=== PATIENT | female | born 1945 | race African-American/Black ===

== ENCOUNTER 2016-12-25 14:11 | Emergency (ER) | payer MEDICARE ==
[~2016-12-25] VITALS: Ht 157.5 cm; Wt 103.9 kg
[~2016-12-25 14:11] MED LIST: ALEVE220 M2 PO; BACTROBAN 2% OI15 GM TOPIC; CIPROFLOXACIN750 MG ORAL; DIABETA2.5 MG ORAL; DIPHENHYDRAMINE25 M1 ORAL; GABAPENTIN300 MG ORAL; LANTUS5 UNITS SUBQ; MELOXICAM7.5 MG ORAL; NOVOLIN R100 UNIT/1 SUBQ; TOUJEO SOL300 UNIT/1 SQ; TRAMADOL HCL50 MG ORAL
[2016-12-25] MEDS ORDERED: Morphine Sulfate 4mg/ml Inj IM ONE (14:45)
--- NOTE | 2016-12-25 14:48 | Emergency Room Report ---
History of Present Illness General Chief Complaint: Female Urogenital Problems Source: Patient Present Illness HPI The patient presents with dysuria that began December 20. She states the pain is 9/10 burning, not radiating, constant. Makes it difficult to walk. She denies any fevers and chills. Her blood sugars have been well controlled recently. She's had bladder infections in the past. She has no medicine for pain at home at this time. No chest pain, cough, NVD. Chronic back pain not changed. No rashes. No headache. Walks with walker. 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 Nursing Documentation: PMH: Agreed, PSxH: Agreed Nursing Documentation-PMH Hx Cardiac Problems: No Hx Hypertension: No Hx Pacemaker: No Hx Asthma: No Hx COPD: 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 Hx Diabetes: Yes Hx Cancer: Yes Hx Gastrointestinal Problems: Yes Hx Neurological Problems: Yes - HX FIBROMYALGIA Review of Systems All Other Systems: negative except mentioned in HPI Physical Exam Vital Signs Date Time Temp Pulse Resp B/P (MAP) Pulse Ox O2 Delivery O2 Flow Rate FiO2 12/25/16 14:22 98.8 83 15 144/80 97 Room Air Sp02 EP Interpretation: reviewed, normal General Appearance: well appearing, no apparent distress, GCS 15 Head: normocephalic, atraumatic Eyes: bilateral eye normal inspection, bilateral eye PERRL ENT: hearing grossly normal, normal voice, moist mucus membranes Neck: full range of motion, supple Respiratory: lungs clear, no respiratory distress, speaking full sentences Cardiovascular #1: regular rate, rhythm Gastrointestinal: normal bowel sounds, non tender, tenderness - suprapubic, overweight Genitourinary: no CVA tenderness Musculoskeletal: gait/station normal - with walker, normal range of motion, no calf tenderness Neurologic: alert, motor strength/tone normal, grossly normal Psychiatric: mood/affect normal Skin: no rash Medical Decision Making Diagnostic Impression: Primary Impression: UTI (urinary tract infection) Qualified Codes: N30.01 - Acute cystitis with hematuria Additional Impression: Diabetes Qualified Codes: E11.8 - Type 2 diabetes mellitus with unspecified complications ER Course The patient presents with dysuria and lower, pain. Chest is hematuria. She denies any fevers. We did check an Accu-Chek and her urine. The patient's Accu-Chek is 100. She'll be treated for pain and were checking her urinalysis. The patient has evidence of a urinary tract infection. Her blood sugar is 100 here in an acceptable. She's improved with the pain shot. Patient is stable for outpatient observation and treatment. Laboratory Tests Test 12/25/16 14:45 Urine Color Yellow Urine Appearance Cloudy Urine pH 6 (4.5-8.0) Urine Specific Rhodes 1.015 (1.005-1.035) Urine Protein 3+ (NEGATIVE) H Urine Glucose (UA) Negative (NEGATIVE) Urine Ketones Negative (NEGATIVE) Urine Occult Blood 5+ (NEGATIVE) H Urine Nitrite Negative (NEGATIVE) Urine Bilirubin Negative (NEGATIVE) Urine Urobilinogen 4 MG/DL (0.0-1.0) H Urine Leukocyte Esterase 3+ (NEGATIVE) H Urine RBC Tntc /HPF (0 - 2) H Urine WBC 60-80 /HPF (0 - 2) H Urine Squamous Epithelial Cells Few /LPF (NONE/OCC) Urine Bacteria Few /HPF (NONE) Last Vital Signs Date Time Temp Pulse Resp B/P (MAP) Pulse Ox O2 Delivery O2 Flow Rate FiO2 12/25/16 15:40 77 16 147/79 98 Room Air 12/25/16 14:22 98.8 Status: improved Disposition: HOME, SELF-CARE Condition: Improved Scripts Tramadol Hcl* (ULTRAM*) 50 Mg Tablet 50 MG ORAL Q6H Y for For Pain, #12 TAB 0 Refills Prov: Kaiden Souza M.D. 12/25/16 Phenazopyridine Hcl* (PYRIDIUM*) 100 Mg Tablet 100 MG ORAL THREE TIMES A DAY, #9 TAB Prov: Kaiden Souza M.D. 12/25/16 Nitrofurantoin Monohyd/M-Cryst* (MACROBID 100 MG*) 100 Mg Capsule 100 MG ORAL EVERY 12 HOURS, #14 CAP Prov: Kaiden Souza M.D. 12/25/16 Kaiden Souza M.D. Dec 25, 2016 14:48
[2016-12-25 14:52] LABS: APPEARANCE,URINE CLOUDY; KETONES,URINE NEGATIVE (NEGATIVE); LEUKOCYTE ESTERASE ,URINE 3+ (NEGATIVE); NITRITE,URINE NEGATIVE (NEGATIVE); PH,URINE 6 (4.5-8.0); PROTEIN,URINE 3+ (NEGATIVE); UROBILINOGEN,URINE 4 MG/DL (0.0-1.0)
[2016-12-25 14:58] LABS: BACTERIA,URINE FEW /HPF; RBC,URINE TNTC /HPF (0 - 2); SQUAMOUS EPITHELIAL CELL,UR FEW /LPF (NONE/OCC); WBC,URINE 60-80 /HPF (0 - 2)
[2016-12-25] MEDS ORDERED: PHENAZOPYRIDIN100 MG ORAL (15:21)
[2016-12-25] MEDS ORDERED: TRAMADOL HCL50 MG ORAL (15:21)
[2016-12-25] MEDS ORDERED: NITROFURANTOIN100 M2 ORAL (15:21)
[2016-12-25 15:40] VITALS: BP 147/79
== END 2016-12-25 15:41 | disposition home or self-care (01) ==
LOC: EMR 14:52
DX: N39.0 Urinary tract infection, site not specified (principal); E11.9 Type 2 diabetes mellitus without complications; Z88.0 Allergy status to penicillin; Z88.6 Allergy status to analgesic agent; Z91.018 Allergy to other foods
CPT/HCPCS: 81003; 87086; 96372; 99284; J2270; J2550

== ENCOUNTER → 2017-01-21 | Day surgery (SDC) | payer MEDICARE ==
--- NOTE | 2017-01-17 15:29 | Diagnostic Imaging Report ---
Indication: Shortness of breath Technique: Two views of the chest Comparison: 11/20/16 Findings: Again demonstrated is borderline cardiac regular. Lungs and pleural spaces are clear. There is a hiatal hernia. There is evidence of prior gastric surgery. Findings are unchanged Impression: No acute process. Findings as noted. Cardiomegaly
--- NOTE | 2017-01-20 14:09 | Opthalmology H&P ---
Ophthalmology H&P H&P Chief Complaint: decreased vision in left eye HPI Vision Affects Ability to: read, focus/use eyes together, manage personal affairs HPI Narrative blurry vision Exam Visual Acuity: OD: 20/40 OD: 20/160 Tension: OD: 18 OS: 17 Eye Exam: normal OU: external exam, palpebral fissure-width, marginal reflex distance, levator function, corneas, anterior chambers, fundus exam, findings: lens - OD: IOL OS: psc Assessment/Plan Diagnosis: (1) Cataract Treatment Plan: cataract extraction w/ lens implant Goals of Treatment: improvement of vision, enhance quality of life Attestation Attestation The risks and benefits of the surgery as well as alternative procedures were explained to the patient in detail. CAM WILL Jan 20, 2017 14:09
--- NOTE | 2017-01-20 14:10 | Pre-Procedure Note/Attestation ---
Pre-Procedure Note/Attestation Complete Prior to Procedure Planned Procedure: left Procedure Narrative: phaco with IOL, OS Indications for Procedure Pre-Operative Diagnosis: cataract, OS Attestation I attest that I discussed the nature of the procedure; its benefits; risks and complications; and alternatives (and the risks and benefits of such alternatives ), prior to the procedure, with the patient (or the patient's legal open claims representative). I attest that, if there was a reasonable possibility of needing a blood transfusion, the patient (or the patient's legal open claims representative) was given the [facility] standardized written summary, pursuant to the [place] Blood Safety Act ([place] Health and Safety Code # 1645, as amended). I attest that I re-evaluated the patient just prior to the surgery and that there has been no change in the patient's H&P, except as documented below: CAM WILL Jan 20, 2017 14:10
[2017-01-21] VITALS (9 sets, daily range): BP systolic 120–156; BP diastolic 56–86
[~2017-01-21] VITALS: Ht 157.5 cm; Wt 101.2 kg
[~2017-01-21] MED LIST changes: +Akten 3.5% 1ml Btl LEFT EYE ONE; +BSS 15ml BTL ONE; +BSS 500ml btl ONE; +Dexamethasone 4mg/ml vial ONE; +EPINEPHrine 1mg/1ml Amp ONE; +LR 1000ml ONE; +Lidocaine 1% MPF 10mg/ml 5ml ONE; +Maxitrol Opth Oint 3.5gm ONE; +Midazolam 2mg/2ml Inj ONE; +NITROFURANTOIN100 M2 ORAL; +NS Irrig 1000ml ONE; +PHENAZOPYRIDIN100 MG ORAL; +Povidone-Iodine 5% opth solution ONE; +Pred Forte 1% Opth Susp 1ml ONE; +Propofol 200mg/20ml IV ONE; +Sodium Hyaluronate 14 mg/ml 0.85ml ONE; +Sterile Water For Irrig 2000ml IRRIG ONE; +acetaZOLAMIDE 500mg Inj ONE; +fentaNYL 100 mcg/2 mL IV ONE
[2017-01-21] MEDS: Tobramycin Op Soln 0.3% LEFT EYE SCH ×3 (07:00→08:00)
[2017-01-21] MEDS: Phenylephrine 10% Opth Soln 5ml LEFT EYE SCH ×3 (07:42→08:00)
[2017-01-21] MEDS: Tropicamide 1% Opth Soln LEFT EYE SCH ×3 (07:42→07:59)
[2017-01-21] MEDS: Cyclopentolate 1% Opth Sol LEFT EYE SCH ×3 (07:42→07:59)
--- NOTE | 2017-01-21 09:02 | Pre-op HX & Phy Repo 2 SIG ---
DATE OF ADMISSION: 01/21/2017 PREOPERATIVE HISTORY AND PHYSICAL DATE OF PLANNED PROCEDURE: 01/21/2017 PLANNED PROCEDURE: Left eye cataract surgery. History Of Present Illness: The patient is a 71-year-old female, well known to me. She has a history of hypertension, diabetes, obesity, and hypothyroidism. She has a prior history of endometrial cancer and osteoarthritis, who presents for left eye cataract surgery. The patient has otherwise been doing well. She has a history of poorly-controlled diabetes and obesity. Sugars have been much improved. The patient denies any fevers or chills. She has had no chest pain or shortness of breath. Denies any orthopnea or PND. PAST MEDICAL HISTORY: As above. PAST SURGICAL HISTORY: Hysterectomy. CURRENT MEDICATIONS: Reconciled and reviewed. ALLERGIES: Amoxicillin, aspirin, and . FAMILY HISTORY: Noncontributory. SOCIAL HISTORY: Negative for tobacco, ethanol, or drugs. Review Of Systems: General: No fever or chills. HEENT: No headaches or visual changes. Cardiopulmonary: No chest pain or shortness of breath. Gastrointestinal: No nausea or vomiting. Genitourinary: No urgency or frequency. Musculoskeletal: No joint pain or swelling. Neurologic: No evidence of seizures. PHYSICAL EXAMINATION: Vital Signs: Temperature 98 degrees, blood pressure 111/66, pulse 96, and respirations 20. General: The patient is a well-developed female, in no apparent distress. She is overweight. Awake, alert, and oriented x4. NECK: Supple. There is no jugular vein distention. HEART: Regular rate and rhythm. LUNGS: Lungs are clear. ABDOMEN: Soft, nontender, and nondistended. EXTREMITIES: Without clubbing, cyanosis, or edema. Laboratory And Diagnostic Data: Labs show white count of 5, hemoglobin 12, hematocrit 35, and platelet count of 206,000. Sodium 138, potassium 4.2, chloride 102, bicarb 27, and glucose of 206. BUN 9. PT 14 with INR of 1.53 with a PTT of 32. LDL is 123. Chest x-ray was clear. EKG showed sinus rhythm with nonspecific ST-T wave changes. Assessment And Plan: This is a pleasant female with diabetes and hypertension referred for left eye cataract surgery. She is medically stable for the planned procedure. We will monitor for any bleeding as she does have a slightly elevated INR. The patient is instructed to continue her antihypertensive regimen and take half a dose of insulin the night prior to her surgery. Her perioperative risk is average for her age and sex. Mikhail Pulliam M.D. DR: LINO JOB#: [id number] CC:
--- NOTE | 2017-01-21 09:55 | Anethesia Preoperative Eval ---
Anesthesia Pre-op PMH/ROS General Date of Evaluation: Jan 21, 2017 Time of Evaluation: 09:22 ASA Score: ASA 3 Mallampati Score Class I : Soft palate, uvula, fauces, pillars visible Class II: Soft palate, uvula, fauces visible Class III: Soft palate, base of uvula visible Class IV: Only hard plate visible Mallampati Classification: Class II Surgeon: brady Diagnosis: cataract left eye Surgical Procedure: cataract extraction left eye iol Anesthesia History: none Family History: no anesthesia problems Allergies: Coded Allergies: Dairy (Verified Allergy, Intermediate, 12/12/15) STUFFY NOSE,VOMITS WHEN PT TAKES MILK WITH BREAD AND EGGS AMOXICILLIN (Verified Allergy, Mild, 08/07/09) ASPIRIN (Verified Allergy, Mild, 08/07/09) Uncoded Allergies: WOOL (Allergy, Intermediate, Rash, 04/18/14) CERTAIN FOOD (Allergy, Mild, 08/11/09) Medications: see eMAR Past Medical History Pulmonary: Reports: COPD Neurologic/Psychiatric: Reports: CVA Endocrine: Reports: DM Hematology/Immune: Reports: anemia Musculoskeletal/Integumentary: Reports: OA Other: obesity Anesthesia Pre-op Phys. Exam Physician Exam Last Vital Signs Date Time Temp Pulse Resp B/P (MAP) Pulse Ox O2 Delivery O2 Flow Rate FiO2 01/21/17 07:44 97.8 79 16 130/77 Room Air Constitutional: NAD Neurologic: CN 2-12 intact Cardiovascular: RRR Respiratory: CTA Gastrointestinal: S/NT/ND Airway Exam Mallampati Score: Class II MO: limited Neck: decreased rom to lateral rotation TMD: 2fb ROM: limited Teeth: missing Dentures: upper Anesthesia Pre-op A/P Risk Assessment & Plan Assessment: asa3 Plan: mac Status Change Before Surgery: No Pre-Antibiotics Drug: acetazolamide 500ml Given Within 1 Hr of Incision: Yes Time Given: 09:30 FARHAD PERALES Jan 21, 2017 09:55
--- NOTE | 2017-01-22 09:25 | Brief Operative Note ---
Immediate Post Operative Note Operative Note Chief Complaint: blurry vision Pre-op Diagnosis: cataract, OS Procedure: phaco with IOl, OS Post-op Diagnosis: Pseudophakia Post-op Diagnosis: same as pre-op Findings: consistent w/pre-op dx studies Surgeon: Cesia Anesthesiologist: Perry Whatley Anesthesia: MAC Specimen: none Complications: none Condition: stable Fluids: LR Estimated Blood Loss: none Drains: none Implant(s) used?: Yes CAM WILL Jan 22, 2017 09:25
--- NOTE | 2017-01-22 10:37 | Operative Note - PDOC ---
Operative Note Operative Note Date of Operation/Procedure: Jan 21, 2017 Chief Complaint: blurry vision Pre-op Diagnosis: cataract, OS Procedure: phaco with IOl, OS Post-op Diagnosis: Pseudophakia Post-op Diagnosis: same as pre-op Operative Findings: consistent w/pre-op dx studies Surgeon: Cesia Anesthesiologist: Perry Whatley Anesthesia: MAC Specimen: none Complications: none Condition: stable Fluids: LR Estimated Blood Loss: none Drains: none Implant(s) used?: Yes Indications for Procedure cataract Description of Procedure This patient has been complaining visually significant cataract in the affected eye with the best corrected visual acuity under moderate glare conditions worse. The patient complains of difficulties with glare in performing activities of daily living and wants to manage personal affairs with comfort and accuracy and see well enough to move with safety at home and outdoors. ~~~ The risks, benefits and alternatives of the procedure were discussed with the patient in the office prior to scheduling surgery. All questions from the patient were answered after the surgical procedure was explained in detail. The risks of the procedure as explained to the patient include, but are not limited to, pain, infection, bleeding, loss of vision, retinal detachment, need for further surgery, loss of lens nucleus, double vision, etc. Alternative procedures were discussed which include, to do nothing or seek a second opinion. Informed consent for this procedure was obtained from the patient. The patient was referred to a primary care physician for a cardiopulmonary clearance prior to surgery, after proper evaluation was done patient was properly scheduled for outpatient surgery. The patient was brought to the operating room where the anesthesiologist established I.V. lines and cardiac monitoring leads. Mild intravenous sedation was administered. The patient was then prepared with a 5% solution of povidone- iodine to the conjunctival fornix and lashes, and a 10% solution of povidone- iodine to the lids and periorbital skin. The patient was then draped in the usual sterile fashion. A lid speculum was then placed in the operative eye. A keratome blade was then used to create a biplanar incision into the anterior chamber. Viscoelastics was then instilled into the anterior chamber. A capsulorrhexis was then fashioned with an utrata forceps, followed by hydrodissection and hydro delineation of the lens nucleus. Paracentesis incision was made at 3 o'clock with sharp blade. The phacoemulsification unit, after being properly adjusted~ and tested, was then used to emulsify the nucleus then residual cortical material was aspirated with the irrigation and aspiration unit. Healon was then instilled into the anterior chamber. The corneal wound was then enlarged to the size of the optic with the darinel keratome blade. The intraocular lens was then inspected for right power and size and thought to be satisfactory. Then the lens was gently placed in the capsular bag. Positioning within the capsular bag was confirmed by direct visualization. Optic centration was accomplished with a Sinskey hook. Viscoelastic was removed from the anterior chamber using the irrigation and aspiration unit. The corneal wound was then tested for leaks and none were found. The lid speculum were then removed. Sponge and needle counts were correct. An eye patch and shield were placed over the operative eye. The patient was taken to the recovery room in stable condition. There were no complications. The patient tolerated the procedure well. The patient was then transferred to the ambulatory surgery unit in stable and satisfactory condition , was given detailed written instructions and asked to follow up~ in the office the next day. ~ ~ Dictated & Transcribed: [facility] Myrna ZAPATA JAMES Jan 22, 2017 10:37
--- NOTE | 2017-01-27 11:15 | Immediate Post-Op Evaluation ---
Immediate Post-Op Evalulation Immediate Post-Op Evalulation Procedure: cataract extraction w/ iol left Date of Evaluation: Jan 21, 2017 Time of Evaluation: 10:09 IV Fluids: 300ml lr Blood Products: none Estimated Blood Loss: negligible Blood Pressure Systolic: 156 Blood Pressure Diastolic: 81 Pulse Rate: 89 Respiratory Rate: 18 O2 Sat by Pulse Oximetry: 100 Temperature (Fahrenheit): 97.8 Pain Score (1-10): 0 Nausea: No Vomiting: No Complications none Patient Status: awake, reacts, patent Hydration Status: adequate Drug: FARHAD Stephenson Jan 27, 2017 11:15
[2017-01-27 11:17] VITALS: BP 144/84
--- NOTE | 2017-01-27 11:17 | 48 Hour Post Anesthesia Eval ---
Post Anesthesia Evaluation Procedure: cataract extraction w/ iol left Date of Evaluation: Jan 21, 2017 Time of Evaluation: 10:11 Blood Pressure Systolic: 144 0: 84 Pulse Rate: 89 Respiratory Rate: 18 Temperature (Fahrenheit): 97.8 O2 Sat by Pulse Oximetry: 100 Airway: patent Nausea: No Vomiting: No Pain Intensity: 0 Hydration Status: adequate Cardiopulmonary Status: stable Mental Status/LOC: patient returned to baseline Post-Anesthesia Complications: none Follow-up care needed: N/A FARHAD PERALES Jan 27, 2017 11:17
== END | disposition home or self-care (01) ==
LOC: SUR 06:11
DX: H26.9 Unspecified cataract (principal); I10 Essential (primary) hypertension; E11.9 Type 2 diabetes mellitus without complications; M19.90 Unspecified osteoarthritis, unspecified site; J44.9 Chronic obstructive pulmonary disease, unspecified; I51.7 Cardiomegaly; K44.9 Diaphragmatic hernia without obstruction or gangrene; E66.3 Overweight; Z68.41 Body mass index [BMI] 40.0-44.9, adult; Z90.710 Acquired absence of both cervix and uterus; Z91.09 Other allergy status, other than to drugs and biological substances; Z91.011 Allergy to milk products; Z91.018 Allergy to other foods; Z88.6 Allergy status to analgesic agent; Z86.73 Personal history of transient ischemic attack (TIA), and cerebral infarction without residual deficits; Z85.42 Personal history of malignant neoplasm of other parts of uterus
CPT/HCPCS: 66984; 71020; 82962; J0171; J1100; J1120; J2250; J2704; J3010; J3370; J7120; V2632; 94003; 94150

== ENCOUNTER 2017-10-27 12:36 | Inpatient (IN) | payer MEDICARE ==
[~2017-10-27] VITALS: Ht 157.5 cm; Wt 108.4 kg
[~2017-10-27 12:36] MED LIST changes: -Akten 3.5% 1ml Btl LEFT EYE ONE; -BSS 15ml BTL ONE; -BSS 500ml btl ONE; -Dexamethasone 4mg/ml vial ONE; -EPINEPHrine 1mg/1ml Amp ONE; -LR 1000ml ONE; -Lidocaine 1% MPF 10mg/ml 5ml ONE; -Maxitrol Opth Oint 3.5gm ONE; -Midazolam 2mg/2ml Inj ONE; -NS Irrig 1000ml ONE; -Povidone-Iodine 5% opth solution ONE; -Pred Forte 1% Opth Susp 1ml ONE; -Propofol 200mg/20ml IV ONE; -Sodium Hyaluronate 14 mg/ml 0.85ml ONE; -Sterile Water For Irrig 2000ml IRRIG ONE; -acetaZOLAMIDE 500mg Inj ONE; -fentaNYL 100 mcg/2 mL IV ONE
[2017-10-27] MEDS ORDERED: HYDROcodone/Acetamin 10/325 tab ORAL PRN (21:00)
[2017-10-27] MEDS: Heparin 5000 units/ml inj SUBQ SCH (21:00)
[2017-10-27] MEDS: metFORMIN 500mg tab ORAL SCH (23:52)
[2017-10-28] MEDS: Levemir Flexpen SUBQ SCH ×3 (00:47→17:46)
[2017-10-28] MEDS: NovoLOG Insulin Flexpen SUBQ SCH ×5 (00:48→20:54)
[2017-10-28 01:20] LABS: BASOPHILS % (AUTO) 0.8 % (0.0-2.0); EOSINOPHILS % (AUTO) 2.6 % (0.0-3.0); HEMATOCRIT 39.4 % (37.0-47.0); HEMOGLOBIN 12.9 G/DL (12.0-16.0); LYMPHOCYTES % (AUTO) 35.6 % (20.0-45.0); MEAN CORPUSCULAR VOLUME 89 FL (80-99); MONOCYTES % (AUTO) 12.4 % (1.0-10.0); NEUTROPHILS % (AUTO) 48.7 % (45.0-75.0); PLATELET COUNT 223 K/UL (150-450); RED BLOOD COUNT 4.42 M/UL (4.20-5.40); RED CELL DISTRIBUTION WIDTH 13.6 % (11.6-14.8); WHITE BLOOD COUNT 6.8 K/UL (4.8-10.8)
[2017-10-28 01:28] LABS: ALANINE AMINOTRANSFERASE 32 U/L (12-78); ALBUMIN 2.8 G/DL (3.4-5.0); ALBUMIN/GLOBULIN RATIO 0.5 (1.0-2.7); ALKALINE PHOSPHATASE 84 U/L (46-116); ANION GAP 6 mmol/L (5-15); ASPARTATE AMINO TRANSFERASE 23 U/L (15-37); BILIRUBIN,TOTAL 0.3 MG/DL (0.2-1.0); BLOOD UREA NITROGEN 14 mg/dL (7-18); CALCIUM 9.1 MG/DL (8.5-10.1); CARBON DIOXIDE 30 MMOL/L (21-32); CHLORIDE 103 MMOL/L (98-107); CREATININE 1.2 MG/DL (0.55-1.30); POTASSIUM 3.6 MMOL/L (3.5-5.1); SODIUM 139 MMOL/L (136-145)
[2017-10-28] MEDS: Vancomycin 1250mg/D5W 250ml IVPB SCH (02:13)
[2017-10-28] MEDS: metFORMIN 500mg tab ORAL SCH ×3 (06:21→17:34)
[2017-10-28 08:00] VITALS: BP 119/76
[2017-10-28] MEDS: Lyrica 50mg cap ORAL SCH ×2 (08:59→17:34)
[2017-10-28] MEDS: Heparin 5000 units/ml inj SUBQ SCH ×2 (09:00→20:58)
[2017-10-28] MEDS ORDERED: Meloxicam 15 MG TAB ORAL SCH (09:00)
[2017-10-28 12:00] VITALS: BP 138/80
[2017-10-28] MEDS ORDERED: Lidocaine 1% 10mg/ml/Epi 0.005mg/ml 30ml vial INJ SCH (13:30)
--- NOTE | 2017-10-28 14:02 | Consultation ---
History of Present Illness General Date patient seen: Oct 28, 2017 Reason for Consultation: left proximal forearm abscess Present Illness HPI 72 year old female with multiple medical comorbidities presented with worsening left proximal forearm abscess. As per patient, she feels as if she has had a lump on her left forearm for over a month. over the past week has noted it to be larger and growing. notes pain around area and some warmth. no n/v/f/c. otherwise well. had similar type of lump on her right forearm a while back which resolved on its own. has history of shingles and believes to have had episode of outbreak in the left forearm 2 years ago. surgery called to evaluate left forearm abscess. patient seen, chart reviewed, patient examined. Allergies: Coded Allergies: Dairy (Verified Allergy, Intermediate, 12/12/15) STUFFY NOSE,VOMITS WHEN PT TAKES MILK WITH BREAD AND EGGS AMOXICILLIN (Verified Allergy, Mild, 08/07/09) ASPIRIN (Verified Allergy, Mild, 08/07/09) Uncoded Allergies: WOOL (Allergy, Intermediate, Rash, 04/18/14) CERTAIN FOOD (Allergy, Mild, 08/11/09) Medication History Scheduled Gabapentin* (Gabapentin*), 300 MG ORAL THREE TIMES A DAY, (Reported) Insulin Glargine,Hum.rec.anlog (Radha Elam), 52 UNIT SQ HS, (Reported) Mupirocin (Mupirocin), 1 APPLIC TOPIC THREE TIMES A DAY Naproxen Sodium (Aleve), MG PO DAILY, (Reported) Scheduled PRN Diphenhydramine Hcl* (Diphenhydramine Hcl*), 25 MG ORAL BID PRN for Itching, ( Reported) Tramadol Hcl* (Ultram*), 50 MG ORAL Q6H PRN for For Pain, (Reported) Patient History History Provided By: Patient, Medical Record, PMD Healthcare decision maker N Resuscitation status Full Code Advanced Directive on File No Past Medical/Surgical History Past Medical/Surgical History: (1) Abscess of left forearm (2) Skin infection (3) Skin infection (4) Xerotic eczema (5) Diabetes (6) UTI (urinary tract infection) (7) Cataract (8) Abscess Review of Systems All Other Systems: negative except mentioned in HPI Physical Exam General Appearance: no apparent distress, alert Lines, tubes and drains: peripheral HEENT: normocephalic, atraumatic, PERRL Neck: normal inspection Respiratory/Chest: normal breath sounds, no respiratory distress, no accessory muscle use Cardiovascular/Chest: normal peripheral pulses, regular rhythm Abdomen: normal bowel sounds, non tender, soft, no mass Extremities: normal range of motion Skin Exam: warm/dry, other - left dorsal promimal forearm 5cm by 4cm area of cellulitis with smaller are of fluctuance in the middle. warm, some erythema, no drainage. Neurologic: alert, oriented x 3 Last 24 Hour Vital Signs Date Time Temp Pulse Resp B/P (MAP) Pulse Ox O2 Delivery O2 Flow Rate FiO2 10/28/17 12:00 98.5 78 20 138/80 100 Room Air 98.5 10/28/17 08:00 97.6 77 18 119/76 95 Room Air 97.6 Intake and Output 10/27/17 10/28/17 19:00 07:00 Intake Total 300 ml Balance 300 ml Intake Oral 300 ml # Voids 2 Laboratory Tests Test 10/28/17 01:02 White Blood Count 6.8 K/UL (4.8-10.8) Red Blood Count 4.42 M/UL (4.20-5.40) Hemoglobin 12.9 G/DL (12.0-16.0) Hematocrit 39.4 % (37.0-47.0) Mean Corpuscular Volume 89 FL (80-99) Mean Corpuscular Hemoglobin 29.1 PG (27.0-31.0) Mean Corpuscular Hemoglobin Concent 32.6 G/DL (32.0-36.0) Red Cell Distribution Width 13.6 % (11.6-14.8) Platelet Count 223 K/UL (150-450) Mean Platelet Volume 5.8 FL (6.5-10.1) L Neutrophils (%) (Auto) 48.7 % (45.0-75.0) Lymphocytes (%) (Auto) 35.6 % (20.0-45.0) Monocytes (%) (Auto) 12.4 % (1.0-10.0) H Eosinophils (%) (Auto) 2.6 % (0.0-3.0) Basophils (%) (Auto) 0.8 % (0.0-2.0) Sodium Level 139 MMOL/L (136-145) Potassium Level 3.6 MMOL/L (3.5-5.1) Chloride Level 103 MMOL/L (98-107) Carbon Dioxide Level 30 MMOL/L (21-32) Anion Gap 6 mmol/L (5-15) Blood Urea Nitrogen 14 mg/dL (7-18) Creatinine 1.2 MG/DL (0.55-1.30) Estimat Glomerular Filtration Rate mL/min (>60) Glucose Level 158 MG/DL (74-106) H Hemoglobin A1c 8.6 % (4.3-6.0) H Calcium Level 9.1 MG/DL (8.5-10.1) Total Bilirubin 0.3 MG/DL (0.2-1.0) Aspartate Amino Transf (AST/SGOT) 23 U/L (15-37) Alanine Aminotransferase (ALT/SGPT) 32 U/L (12-78) Alkaline Phosphatase 84 U/L (46-116) Total Protein 7.9 G/DL (6.4-8.2) Albumin 2.8 G/DL (3.4-5.0) L Globulin 5.1 g/dL Albumin/Globulin Ratio 0.5 (1.0-2.7) L Height (Feet): 5 Height (Inches): 2.00 Weight (Pounds): 239 Medications Current Medications Medications (Trade) Dose Ordered Sig/Cecelia Route PRN Reason Start Time Stop Time Status Last Admin Dose Admin Acetaminophen/ Hydrocodone Bitart ([place] 10/325) 1 tab Q4H PRN ORAL For Pain 10/27/17 21:00 11/03/17 20:59 Clonidine HCl (Catapres Tab) 0.1 mg Q4H PRN ORAL For High Blood Pressure 10/27/17 21:00 11/26/17 20:59 Dextrose (Dextrose 50%) 25 ml STAT PRN IV Hypoglycemia 10/27/17 21:00 11/26/17 20:59 Dextrose (Dextrose 50%) 50 ml STAT PRN IV Hypoglycemia 10/27/17 21:00 11/26/17 20:59 Diphenhydramine HCl (Benadryl) 25 mg Q12H PRN ORAL Itching 10/27/17 23:45 11/26/17 23:44 10/28/17 00:51 Heparin Sodium (Porcine) (Heparin 5000 units/ml) 5,000 units EVERY 12 HOURS SUBQ 10/27/17 21:00 11/26/17 20:59 10/28/17 09:00 Insulin Aspart (NovoLOG) BEFORE MEALS AND HS SUBQ 10/27/17 21:00 11/26/17 20:59 10/28/17 12:01 Insulin Detemir (Levemir) 30 units BID SUBQ 10/27/17 21:00 11/26/17 20:59 10/28/17 09:01 Lidocaine/ Epinephrine (Xylocaine 1%/ Epi MPF 30ml) 30 ml ONCE INJ 10/28/17 13:30 10/28/17 15:00 Metformin HCl (Glucophage) 500 mg TIAC ORAL 10/27/17 21:00 11/26/17 20:59 10/28/17 12:00 Non-Formulary Medication (Non-Formulary Med) 1 ea BEDTIME ORAL 10/28/17 21:00 11/27/17 20:59 UNV Pregabalin (Lyrica) 50 mg TWICE A DAY ORAL 10/28/17 09:00 11/27/17 08:59 10/28/17 08:59 Vancomycin HCl (Vanco rx to dose) 1 ea DAILY PRN MISC Per rx protocol 10/27/17 21:00 11/26/17 20:59 Vancomycin HCl/ Dextrose 250 ml @ 166.667 mls/hr Q24H IVPB 10/28/17 01:00 11/02/17 00:59 10/28/17 02:13 Assessment/Plan Problem List: (1) Abscess of left forearm Assessment & Plan: left forearm proximal dorsal aspect abscess. possibly chronic? exam with area of fluctuance. afebrile, HD stable, labs reviewed. -recommend I&D at bedside -will send cultures Procedure: consent obtained. left forearm prepped and draped in standard surgical fashion. local 1%w/ lido infiltrated. 1-2 cm incision made over area of fluctuance. serous fluid evacuated. cultures taken. no gross pus noted. few septated areas of fluid collections noted and evacuated. wound irrigated and cleaned. packing and dressings applied. patient tolerated well. -will change dressings tomorrow ICD Codes: L02.414 - Cutaneous abscess of left upper limb SNOMED: [id number] Status: stable Benyamini,Alcides Oct 28, 2017 14:02
--- NOTE | 2017-10-28 14:49 | Diagnostic Imaging Report ---
Indication: Reason For Exam: INFECT Technique: No IV contrast, per referring physician request Spiral acquisitions obtained through the left forearm Multiplanar reconstructions were generated. Total dose length product 196 mGycm. CTDIvol(s) 5 mGy. Radiation dose was minimized using automated exposure control Comparison: none Findings: Evaluation is limited in the absence of IV contrast administration. There is fairly intense edema of the subcutaneous fat of the dorsal medial proximal arm adjacent to the ulnar shaft. Ill-defined areas of lower attenuation within this could represent abscess, but this cannot be stated with any confidence in the absence of IV contrast administration. Less intense edema is seen dorsally and anteriorly to this. No evidence of osseous erosions. No fractures. Impression: Considerable edema of the dorsal medial fat of the proximal left forearm. Given stated clinical history, likely on the basis of cellulitis. There is some more central lower attenuation, but in the absence of IV contrast this is nonspecific, could represent abscess or phlegmon. Further evaluation with ultrasound or MRI may be useful to clarify No definite bony abnormality The CT scanner at [facility] is accredited by the [employer] and the scans are performed using protocols designed to limit radiation exposure to as low as reasonably achievable to attain images of sufficient resolution adequate for diagnostic evaluation.
[2017-10-28] MEDS ORDERED: Heparin 2000 units/Ns 1000ml INJ SCH (15:00)
[2017-10-28] MEDS ORDERED: Lidocaine 1% Plain 30 ml INJ SCH (15:00)
[2017-10-28 16:00] VITALS: BP 118/73
--- NOTE | 2017-10-28 16:13 | Diagnostic Imaging Report ---
Indications: Needs long-term IV access Technique: Ultrasound confirms patent compressible right basilic vein. Total sterile technique, including sterile probe cover and sterile gel, hat, mask,, sterile gown, large sterile drape, and preparation with 2% chlorhexidine utilized. Local anesthesia with 1% lidocaine. Under real-time ultrasound guidance, puncture basilic vein using 21-gauge needle, documented and archived, passage 0.018 guidewire under direct fluoroscopy, which was used to determine appropriate catheter length, exchange for 5 Jordanian peel-away sheath. 5 Jordanian Bard dual-lumen power PICC cut to 40 cm. It was inserted through the peel-away sheath. Peel-away sheath and guidewire removed. Catheter fixed to the skin. Both catheter ports aspirated and flushed. Patient tolerated procedure well, without immediate complication. Digital radiograph documents satisfactory catheter tip position, at the cavoatrial junction. Total fluoroscopy time 0.4 minutes. Total dose area product 25 dGycm2 Impression: Successful placement of right arm PICC under sonographic and fluoroscopic guidance, as described above.
--- NOTE | 2017-10-28 19:46 | History and Physical Report ---
DATE OF ADMISSION: 10/27/2017 CHIEF COMPLAINT: Left arm abscess. HISTORY OF PRESENT ILLNESS: The patient is a pleasant 72-year-old female. She has a history of obesity, hypertension, and diabetes. She presented with complaints of a left arm abscess. She was seen little over a week ago in the office and was diagnosed with cellulitis of the left arm. She was started on Bactrim. She returned on the day of admission here and the cellulitis was not improved. She appeared to have developed an abscess. In light of her failure to respond to outpatient antibiotic therapy, she is now admitted for further evaluation and care. She denies any fevers or chills. She has had no chest pain or shortness of breath. PAST MEDICAL HISTORY: As above. PAST SURGICAL HISTORY: None. CURRENT MEDICATIONS: Reconciled and reviewed. ALLERGIES: Amoxicillin, aspirin, dairy and wool. FAMILY HISTORY: Noncontributory. SOCIAL HISTORY: There is no known history of tobacco, ethanol, or drugs. REVIEW OF SYSTEMS: GENERAL: No fevers or chills. HEENT: No headaches or visual changes. CARDIOPULMONARY: No chest pain or shortness of breath. GASTROINTESTINAL: No nausea or vomiting. GENITOURINARY: No urgency or frequency. MUSCULOSKELETAL: No joint pain or swelling. NEUROLOGIC: No evidence of seizures. PHYSICAL EXAMINATION: VITAL SIGNS: Temperature 98 degrees, pulse 76, respirations 20, and blood pressure 130/70. The patient is well developed, in no apparent distress. HEART: Regular rate and rhythm. LUNGS: Clear. ABDOMEN: Soft, nontender, and nondistended. EXTREMITIES: Without clubbing or cyanosis. Left arm has area approximately 5 x 5 cm with fluctuance, induration, warmth, and pain. LABORATORY DATA: White count was 6.8. Hemoglobin A1c is 8.6. ASSESSMENT: This is a pleasant female admitted with complaints of a left upper extremity abscess. She has a history of diabetes and hypertension. PLAN: 1. Surgical consultation. 2. IV antibiotics. 3. Follow up cultures. 4. Continue outpatient diabetic regimen and cardiac regimen. Mikhail Pulliam M.D. DR: LINO JOB#: [id number] CC:
[2017-10-28 20:00] VITALS: BP 117/67
[2017-10-28 20:01] VITALS: BP 117/67
[2017-10-28] MEDS: Dyna-Hex 2% Top Sol 2oz TOPIC SCH (20:50)
[2017-10-28 21:23] VITALS: BP 117/67
[2017-10-29] VITALS: BP 117/54
[2017-10-29] MEDS: Vancomycin 1250mg/D5W 250ml IVPB SCH (01:07)
[2017-10-29 04:00] VITALS: BP 101/57
--- NOTE | 2017-10-29 04:00 | Progress Note ---
DATE: 10/28/2017 CARDIOLOGY PROGRESS NOTE SUBJECTIVE: The patient is status post I and D of left elbow drainage was obtained. She denies chest pain or shortness of breath. OBJECTIVE: VITAL SIGNS: Blood pressure 117/67, pulse 80, respiratory rate 20, afebrile, room air oxygen saturation 95% to 98%. NECK: Obese, but supple. LUNGS: Clear. BREASTS: Pendulous breasts. HEART: Regular rhythm and rate. Normal S1, S2. ABDOMEN: Obese. EXTREMITIES: Trace dependent edema. Left arm has dressing in place. LABORATORY DATA: White count 6.8, hemoglobin 12.9. Potassium 3.6, glucose 158, albumin 2.8. IMPRESSION: 1. Cellulitis. 2. Possible left elbow abscess. 3. Hypertensive heart disease. 4. Chronic kidney disease. 5. Insulin-requiring diabetes mellitus, poorly controlled. 6. Moderate protein-calorie malnutrition. 7. Diastolic dysfunction with chronic congestive heart failure. PLAN: 1. Antimicrobials. 2. DVT prophylaxis. 3. Skin care. 4. Insulin titration. 5. Consider adding angiotensin-converting enzyme inhibitor if blood pressure parameters increase. Myrna Brown JOB#: [id number] CC:
[2017-10-29] MEDS: NovoLOG Insulin Flexpen SUBQ SCH ×4 (06:30→21:00)
[2017-10-29] MEDS: metFORMIN 500mg tab ORAL SCH ×3 (06:59→17:52)
[2017-10-29 08:00] VITALS: BP 102/45
[2017-10-29] MEDS: Lactobacillus-GG tablet ORAL SCH ×3 (09:03→17:52)
[2017-10-29] MEDS: Lyrica 50mg cap ORAL SCH ×2 (09:04→17:52)
[2017-10-29] MEDS: Nystatin Powder 100,000 units/gm 15gm TOPIC SCH ×2 (09:04→17:53)
[2017-10-29] MEDS: Heparin 5000 units/ml inj SUBQ SCH ×2 (09:09→20:24)
[2017-10-29] MEDS: Levemir Flexpen SUBQ SCH ×2 (10:04→17:55)
[2017-10-29 12:00] VITALS: BP 100/55
--- NOTE | 2017-10-29 14:52 | General Surgery Progress Note ---
General Surgery-Progress Note Subjective Symptoms: improved, pain absent, tolerating diet, passing flatus, BM Additional Comments doing well. no complaints. comfortable Objective Last 24 Hour Vital Signs Date Time Temp Pulse Resp B/P (MAP) Pulse Ox O2 Delivery O2 Flow Rate FiO2 10/29/17 12:00 97.7 73 20 100/55 97 Room Air 97.7 10/29/17 08:00 97.7 75 20 102/45 97 Room Air 97.7 10/29/17 04:00 97.9 81 18 101/57 96 Room Air 97.9 10/29/17 00:00 97.2 83 19 117/54 98 Room Air 97.2 10/28/17 20:01 97.2 83 20 117/67 95 Room Air 97.2 10/28/17 16:00 98.3 80 18 118/73 96 Room Air 98.3 I&O Intake and Output 10/28/17 10/29/17 19:00 07:00 Intake Total 800 ml 1010.000 ml Balance 800 ml 1010.000 ml Intake Oral 800 ml 760 ml IV Total 250.000 ml # Voids 2 2 Dressing: dry Wound: clean, dry Drains: none Cardiovascular: RSR Respiratory: clear Abdomen: soft, flat, non-tender, present bowel sounds Extremities: no edema, no tenderness, no cyanosis, other - wound clean, dry, without significant drainage. edema improved. Plan Problems: (1) Abscess of left forearm Assessment & Plan: left forearm proximal dorsal aspect abscess. possibly chronic? exam with area of fluctuance. afebrile, HD stable, labs reviewed. s/p I&D of left forearm - cystic fluid evacuated. edema improved. cellulitis improving. cultures negative. wound c/d/i -dressings BID -wait for final micro -will follow with recs. thank you Alcides Thrasher Oct 29, 2017 14:52
[2017-10-29 16:00] VITALS: BP 113/75
[2017-10-29] MEDS ORDERED: Levemir Flexpen SUBQ SCH (18:00)
--- NOTE | 2017-10-29 18:52 | General Progress Note ---
Assessment/Plan Problem List: (1) Abscess ICD Codes: L02.91 - Cutaneous abscess, unspecified SNOMED: 459535181 (2) Diabetes ICD Codes: E11.9 - Type 2 diabetes mellitus without complications SNOMED: 66977181 (3) Abscess of left forearm ICD Codes: L02.414 - Cutaneous abscess of left upper limb SNOMED: 90075896 Status: stable Assessment/Plan iv abx follow up cultures decrease insulin bp rx Subjective ROS Limited/Unobtainable: No Constitutional: Reports: malaise, weakness HEENT: Reports: no symptoms Cardiovascular: Reports: no symptoms Respiratory: Reports: no symptoms Gastrointestinal/Abdominal: Reports: no symptoms Genitourinary: Reports: no symptoms Neurologic/Psychiatric: Reports: no symptoms Endocrine: Reports: no symptoms Hematologic/Lymphatic: Reports: no symptoms Allergies: Coded Allergies: Dairy (Verified Allergy, Intermediate, 12/12/15) STUFFY NOSE,VOMITS WHEN PT TAKES MILK WITH BREAD AND EGGS AMOXICILLIN (Verified Allergy, Mild, 08/07/09) ASPIRIN (Verified Allergy, Mild, 08/07/09) Uncoded Allergies: WOOL (Allergy, Intermediate, Rash, 04/18/14) CERTAIN FOOD (Allergy, Mild, 08/11/09) All Systems: reviewed and negative except above Subjective s/p ID left arm abscess. Objective Last 24 Hour Vital Signs Date Time Temp Pulse Resp B/P (MAP) Pulse Ox O2 Delivery O2 Flow Rate FiO2 10/29/17 16:00 97.0 72 20 113/75 97 Room Air 97.0 10/29/17 12:00 97.7 73 20 100/55 97 Room Air 97.7 10/29/17 08:00 97.7 75 20 102/45 97 Room Air 97.7 10/29/17 04:00 97.9 81 18 101/57 96 Room Air 97.9 10/29/17 00:00 97.2 83 19 117/54 98 Room Air 97.2 10/28/17 20:01 97.2 83 20 117/67 95 Room Air 97.2 Intake and Output 10/28/17 10/29/17 19:00 07:00 Intake Total 800 ml 1010.000 ml Balance 800 ml 1010.000 ml Intake Oral 800 ml 760 ml IV Total 250.000 ml # Voids 2 2 Height (Feet): 5 Height (Inches): 2.00 Weight (Pounds): 239 General Appearance: WD/WN, alert Neck: supple Cardiovascular: regular rhythm Respiratory/Chest: lungs clear Abdomen: normal bowel sounds, non tender, soft, no organomegaly Edema: no edema noted Arm (L), no edema noted Arm (R), no edema noted Leg (L), no edema noted Leg (R), no edema noted Pedal (L), no edema noted Pedal (R), no edema noted Generalized 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
[2017-10-29 20:00] VITALS: BP 149/79
[2017-10-29] MEDS: Dyna-Hex 2% Top Sol 2oz TOPIC SCH (20:23)
[2017-10-30] VITALS: BP 119/58
[2017-10-30] MEDS: Vancomycin 1250mg/D5W 250ml IVPB SCH (02:10)
--- NOTE | 2017-10-30 03:15 | Progress Note ---
DATE: 10/29/2017 CARDIOLOGY PROGRESS NOTE SUBJECTIVE: Blood pressure readings are low. The patient without dizziness, nausea, vomiting, chest pain, or shortness of breath. Arm pain has diminished. OBJECTIVE: VITAL SIGNS: Blood pressure 113/75, pulse 72, respiratory rate 20, and afebrile. LUNGS: Clear. CARDIAC: Regular. Normal S1 and S2. ABDOMEN: Soft. EXTREMITIES: Left upper extremity with trace edema. Dressing in place. LABORATORY STUDIES: Wound cultures remain negative. IMPRESSION: 1. Cellulitis. 2. Diabetes mellitus. 3. Hypertensive heart disease. 4. Insulin-requiring diabetes mellitus. PLAN: 1. Hold parameters for enzyme inhibitor in view of low ranged blood pressure readings. 2. Continue antimicrobials, skin care, and insulin titration per sliding scale coverage. Kaiden Toribio M.D. DR: MALCOLM JOB#: [id number] CC:
[2017-10-30 04:00] VITALS: BP 140/67
[2017-10-30] MEDS: metFORMIN 500mg tab ORAL SCH ×3 (06:05→16:30)
[2017-10-30] MEDS: NovoLOG Insulin Flexpen SUBQ SCH ×4 (06:07→20:32)
[2017-10-30 08:00] VITALS: BP 132/64
[2017-10-30] MEDS: Lyrica 50mg cap ORAL SCH ×2 (09:36→18:04)
[2017-10-30] MEDS: Levemir Flexpen SUBQ SCH ×2 (09:36→18:05)
[2017-10-30] MEDS: Lactobacillus-GG tablet ORAL SCH ×3 (09:36→17:19)
[2017-10-30] MEDS: Nystatin Powder 100,000 units/gm 15gm TOPIC SCH ×2 (09:37→18:04)
[2017-10-30] MEDS: Heparin 5000 units/ml inj SUBQ SCH ×2 (09:38→20:32)
--- NOTE | 2017-10-30 11:09 | General Progress Note ---
Assessment/Plan Problem List: (1) Abscess ICD Codes: L02.91 - Cutaneous abscess, unspecified SNOMED: 681943983 (2) Diabetes ICD Codes: E11.9 - Type 2 diabetes mellitus without complications SNOMED: 85853816 (3) Abscess of left forearm ICD Codes: L02.414 - Cutaneous abscess of left upper limb SNOMED: 14818510 Status: stable Assessment/Plan iv abx follow up cultures decrease insulin bp rx Subjective ROS Limited/Unobtainable: No Constitutional: Reports: no symptoms HEENT: Reports: no symptoms Cardiovascular: Reports: no symptoms Respiratory: Reports: no symptoms Gastrointestinal/Abdominal: Reports: no symptoms Genitourinary: Reports: no symptoms Neurologic/Psychiatric: Reports: no symptoms Endocrine: Reports: no symptoms Hematologic/Lymphatic: Reports: no symptoms Allergies: Coded Allergies: Dairy (Verified Allergy, Intermediate, 12/12/15) STUFFY NOSE,VOMITS WHEN PT TAKES MILK WITH BREAD AND EGGS AMOXICILLIN (Verified Allergy, Mild, 08/07/09) ASPIRIN (Verified Allergy, Mild, 08/07/09) Uncoded Allergies: WOOL (Allergy, Intermediate, Rash, 04/18/14) CERTAIN FOOD (Allergy, Mild, 08/11/09) All Systems: reviewed and negative except above Subjective s/p ID left arm abscess. Objective Last 24 Hour Vital Signs Date Time Temp Pulse Resp B/P (MAP) Pulse Ox O2 Delivery O2 Flow Rate FiO2 10/30/17 08:00 97.9 71 18 132/64 95 Room Air 97.9 10/30/17 04:00 97.9 73 16 140/67 96 Room Air 97.9 10/30/17 00:00 98.4 85 17 119/58 96 98.4 10/29/17 20:00 98.3 84 17 149/79 97 Room Air 98.3 10/29/17 16:00 97.0 72 20 113/75 97 Room Air 97.0 10/29/17 12:00 97.7 73 20 100/55 97 Room Air 97.7 Intake and Output 10/29/17 10/30/17 19:00 07:00 Intake Total 360 ml 240 ml Balance 360 ml 240 ml Intake Oral 360 ml 240 ml # Voids 5 Laboratory Tests 10/30/17 00:00: Vancomycin Level Trough 8.9 Height (Feet): 5 Height (Inches): 2.00 Weight (Pounds): 239 Objective General Appearance: WD/WN, alert Neck: supple Cardiovascular: regular rhythm Respiratory/Chest: lungs clear Abdomen: normal bowel sounds, non tender, soft, no organomegaly Edema: no edema noted Arm (L), no edema noted Arm (R), no edema noted Leg (L), no edema noted Leg (R), no edema noted Pedal (L), no edema noted Pedal (R), no edema noted 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
[2017-10-30 12:00] VITALS: BP 126/75
--- NOTE | 2017-10-30 13:48 | General Surgery Progress Note ---
General Surgery-Progress Note Subjective Symptoms: improved, pain absent, tolerating diet, passing flatus Objective Last 24 Hour Vital Signs Date Time Temp Pulse Resp B/P (MAP) Pulse Ox O2 Delivery O2 Flow Rate FiO2 10/30/17 12:00 98.4 86 20 126/75 98 Room Air 98.4 10/30/17 08:00 97.9 71 18 132/64 95 Room Air 97.9 10/30/17 04:00 97.9 73 16 140/67 96 Room Air 97.9 10/30/17 00:00 98.4 85 17 119/58 96 98.4 10/29/17 20:00 98.3 84 17 149/79 97 Room Air 98.3 10/29/17 16:00 97.0 72 20 113/75 97 Room Air 97.0 I&O Intake and Output 10/29/17 10/30/17 19:00 07:00 Intake Total 360 ml 240 ml Balance 360 ml 240 ml Intake Oral 360 ml 240 ml # Voids 5 Wound: clean Drains: none Cardiovascular: RSR Respiratory: clear Abdomen: soft, non-tender, present bowel sounds Extremities: no tenderness, no cyanosis Laboratory Tests Test 10/30/17 00:00 Vancomycin Level Trough 8.9 ug/mL (5.0-12.0) Plan Problems: (1) Abscess of left forearm Assessment & Plan: left forearm proximal dorsal aspect abscess. possibly chronic? exam with area of fluctuance. afebrile, HD stable, labs reviewed. s/p I&D of left forearm - cystic fluid evacuated. edema improved. cellulitis improving. cultures negative. wound c/d/i -dressings BID -d/c planning -will follow with recs. thank you Alcides Thrasher Oct 30, 2017 13:48
[2017-10-30 16:00] VITALS: BP 140/75
[2017-10-30 20:00] VITALS: BP 142/73
[2017-10-30] MEDS: Dyna-Hex 2% Top Sol 2oz TOPIC SCH (20:33)
[2017-10-31] VITALS: BP 140/71
--- NOTE | 2017-10-31 00:45 | Progress Note ---
DATE: 10/30/2017 CARDIOLOGY PROGRESS NOTE SUBJECTIVE: Pain controlled, left upper extremity without drainage now. OBJECTIVE: VITAL SIGNS: Afebrile, blood pressure 132/64, pulse 71, and respirations 18. Blood pressure max 149/79. LUNGS: Clear. CARDIAC: Regular. ABDOMEN: Soft. EXTREMITIES: No edema. Left upper extremity, slightly less erythema and drainage. IMPRESSION: 1. Left upper extremity cellulitis and abscess, improved. 2. Hypertensive heart disease with overall controlled blood pressure range. 3. Insulin-requiring diabetes mellitus with low blood glucose at times. 4. Chronic kidney disease. PLAN: 1. Continue same cardiovascular regimen. 2. Titrate angiotensin-converting enzyme inhibitor as needed. 3. antibiotics. 4. Skin care. 5. Titrate insulin with decreasing dose based on glucose range. Kaiden Toribio M.D. DR: TOMASZ JOB#: [id number] CC:
--- NOTE | 2017-10-31 00:45 | Consultation ---
DATE OF CONSULTATION: 10/27/2017 CARDIOLOGY CONSULTATION CONSULTING PHYSICIAN: Kaiden Toribio M.D. REQUESTING PHYSICIAN: Mikhail Pulliam M.D. REASON FOR CONSULTATION: Management of hypertension in the setting of cellulitis and abscess. HISTORY OF PRESENT ILLNESS: This is a 72-year-old female with multiple medical problems, who has had failure to respond on oral antibiotics to cellulitis of her left arm and has developed an abscess. I have been asked to assist with cardiovascular care in view of underlying history of labile hypertension and diastolic dysfunction. The patient has not had any chest pain or shortness of breath yet. She does have the leg swelling. She notes it is worse during the day and does improve at night. She has been compliant with medication. She does not really watch sodium intake. PAST MEDICAL HISTORY: Insulin-requiring diabetes mellitus, history of uterine cancer, status post hysterectomy, hypertensive heart disease, chronic kidney disease, diabetic neuropathy, obesity, tinea cruris, vitamin D deficiency. Cataract, status post cataract removal. ALLERGIES: Include penicillin, aspirin, and dairy products. MEDICATIONS: Reviewed and reconciled. FAMILY HISTORY: Noncontributory. SOCIAL HISTORY: No record of smoking, alcohol, or substance abuse. REVIEW OF SYSTEMS: There is no history of flow-limiting coronary artery disease. She has had prior myocardial perfusion scans that were negative for flow-limiting coronary disease. Her most recent echocardiogram within the last three months revealed normal ejection fraction, concentric hypertrophy, and a diastolic relaxation abnormality with minimal mitral and tricuspid regurgitation. There is no history of significant cardiac arrhythmias. There is no history of thyroid disorder. Her diabetes is managed with insulin. There is no history of seizure or stroke. There is no history of blood clots in the legs or asthma. PHYSICAL EXAMINATION: VITAL SIGNS: Blood pressure 138/60, pulse 72, respirations 18, afebrile. HEENT: Conjunctivae pink. Sclerae are anicteric. Oropharynx clear. Mucous membranes moist. NECK: Supple and obese. Jugular venous pressure difficult to assess. BREASTS: Pendulous. There is slight tinea under the breast. LUNGS: Diminished breath sounds. No wheezing or rales. CARDIAC: Regular rhythm and rate. Distant S1 and S2. No murmur, rub, or gallop. ABDOMEN: Obese, soft, and nontender. EXTREMITIES: Reveal no clubbing or cyanosis. No edema other than the left upper extremity around the elbow and approximately 5 cm x 4 cm area in the left dorsum. Fluctuant, warm, and red. LABORATORY AND DIAGNOSTIC DATA: Outpatient EKG revealed sinus rhythm, no acute ST T-wave abnormalities. Laboratories are pending. IMPRESSION: 1. Cellulitis and abscess, left upper extremity. 2. Insulin-requiring diabetes mellitus. 3. Hypertensive heart disease with controlled blood pressure. 4. Diastolic dysfunction with no signs of acute congestive heart failure. 5. Obesity with increased risk of DVT. PLAN: Panculture. Broad-spectrum antibiotics. Insulin titration. Surgical evaluation for drainage. Maintenance antihypertensives including angiotensin-converting enzyme inhibitor with p.r.n. blood pressure therapy for breakthrough elevation. DVT prophylaxis with subcutaneous heparin. Kaiden Toribio M.D. DR: TOMASZ JOB#: [id number] CC:
[2017-10-31] MEDS ORDERED: VANCOMYCIN IVPB SCH (02:00)
[2017-10-31] MEDS ORDERED: D5W IVPB SCH (02:00)
[2017-10-31 05:00] VITALS: BP 110/70
[2017-10-31] MEDS: metFORMIN 500mg tab ORAL SCH ×2 (06:11→12:05)
[2017-10-31] MEDS: NovoLOG Insulin Flexpen SUBQ SCH ×2 (06:20→11:30)
[2017-10-31 08:00] VITALS: BP 111/63
[2017-10-31] MEDS: Lyrica 50mg cap ORAL SCH (08:13)
[2017-10-31] MEDS: Heparin 5000 units/ml inj SUBQ SCH (08:14)
[2017-10-31] MEDS: Levemir Flexpen SUBQ SCH (08:15)
[2017-10-31] MEDS: Lactobacillus-GG tablet ORAL SCH ×2 (08:15→11:59)
[2017-10-31] MEDS: Nystatin Powder 100,000 units/gm 15gm TOPIC SCH (08:16)
[2017-10-31] MEDS ORDERED: Tubing IV Secondary IV ONE (09:34)
[2017-10-31] MEDS ORDERED: Pantoprazole Inj IVP SCH (10:15)
--- NOTE | 2017-10-31 11:56 | General Surgery Progress Note ---
General Surgery-Progress Note Subjective Symptoms: improved, pain absent, tolerating diet, voiding well, passing flatus , BM Objective Last 24 Hour Vital Signs Date Time Temp Pulse Resp B/P (MAP) Pulse Ox O2 Delivery O2 Flow Rate FiO2 10/31/17 08:00 97.3 76 20 111/63 97 Room Air 97.3 10/31/17 05:00 98.8 88 18 110/70 96 Room Air 98.8 10/31/17 00:00 98.4 78 18 140/71 96 Room Air 98.4 10/30/17 20:00 98.4 81 20 142/73 94 Room Air 98.4 10/30/17 16:00 97.4 79 20 140/75 97 Room Air 97.4 10/30/17 12:00 98.4 86 20 126/75 98 Room Air 98.4 I&O Intake and Output 10/30/17 10/31/17 19:00 07:00 Intake Total 236 ml 700 ml Balance 236 ml 700 ml Intake Oral 236 ml 200 ml IV Total 500 ml # Voids 5 1 # Bowel Movements 2 Wound: clean, dry Drains: none Cardiovascular: RSR Respiratory: clear Abdomen: soft, non-tender, present bowel sounds Extremities: no cyanosis Plan Problems: (1) Abscess of left forearm Assessment & Plan: left forearm proximal dorsal aspect abscess. possibly chronic? exam with area of fluctuance. afebrile, HD stable, labs reviewed. s/p I&D of left forearm - cystic fluid evacuated. edema improved. cellulitis improving. cultures staph A. wound c/d/i -dressings BID -d/c -follow up as outpatient next tuesday -will follow with recs. thank you Alcides Thrasher Oct 31, 2017 11:56
[2017-10-31 12:00] VITALS: BP_SYST 111; BP_SYST 130; BP_DIAS 63; BP_DIAS 67
--- NOTE | 2017-10-31 12:35 | Diagnostic Imaging Report ---
Indication: Cough Comparison: 01/17/2017 2 views of the chest obtained. Surgical sutures subjective over the stomach which is partially in the chest consistent with a hiatal hernia. There is a right PICC line which is stable. Heart is normal in size. Lung volumes are low. Bones are osteopenic. IMPRESSION: No acute disease. Evidence of prior stomach surgery. Hiatal hernia noted. PICC line in good position
[2017-10-31] MEDS ORDERED: VIBRAMYCIN100 MG ORAL (13:20)
--- NOTE | 2017-10-31 23:30 | Progress Note ---
DATE: 10/31/2017 CARDIOLOGY PROGRESS NOTE SUBJECTIVE: Condition has improved. Vitals are stable. Wounds, no new drainage. The patient's cough is unchanged. Her chest x-ray revealed no acute process. OBJECTIVE: LUNGS: Coarse breath sounds. Scattered rhonchi. HEART: Regular rhythm and rate. Normal S1, S2. ABDOMEN: Soft. EXTREMITIES: No edema. Left upper extremity with no warmth or redness. IMPRESSION: 1. Hypertension, controlled. 2. Diastolic dysfunction, compensated. 3. Chronic cough likely due to reflux and associated hiatal hernia. 4. Cellulitis of left upper extremity, recovered. 5. Insulin-requiring diabetes mellitus. PLAN: 1. Outpatient followup on current cardiovascular regimen. 2. Anti-reflux measures and proton pump inhibitor. 3. Complete wound care and oral antibiotics as an outpatient. Kaiden Toribio M.D. DR: RONAL JOB#: [id number] CC:
--- NOTE | 2017-11-01 02:15 | Discharge Summary ---
DATE OF ADMISSION: 10/27/2017 DATE OF DISCHARGE: 10/31/2017 ADMISSION DIAGNOSIS: Left arm abscess. DISCHARGE DIAGNOSIS: Left arm abscess. HOSPITAL COURSE: The patient is a pleasant female. She had failed outpatient therapy for cellulitis of the left upper extremity. She has developed an abscess. She was admitted. She underwent an incision and drainage. Culture showed Staph 1+. culture was ensued, did not return back. The patient clinically improved with IV antibiotic therapy and with the incision and drainage. On discharge, she was stable. She will continue a week additional doxycycline. She has been instructed to return for any worsening fevers, chills, erythema, warmth, or swelling. DISCHARGE MEDICATIONS: Please see discharge medication list for discharge medications. DIET: Cardiac and diabetic diet. ACTIVITIES: Ad-sunita. FOLLOWUP: The patient will follow up in one to two weeks in the office. Mikhail Pulliam M.D. DR: LINO JOB#: [id number] CC:
== END 2017-10-31 15:36 | disposition home or self-care (01) | DRG 580 ==
LOC: 3E 20:05
PROC: 02HV33Z Insertion of Infusion Device into Superior Vena Cava, Percutaneous Approach (ICD-10-PCS; principal; 2017-10-28)
PROC: 0J9H0ZZ Drainage of Left Lower Arm Subcutaneous Tissue and Fascia, Open Approach (ICD-10-PCS; principal; 2017-10-28)
DX: L02.414 Cutaneous abscess of left upper limb (principal); I50.32 Chronic diastolic (congestive) heart failure; E44.0 Moderate protein-calorie malnutrition; I13.0 Hypertensive heart and chronic kidney disease with heart failure and stage 1 through stage 4 chronic kidney disease, or unspecified chronic kidney disease; Z68.41 Body mass index [BMI] 40.0-44.9, adult; L03.114 Cellulitis of left upper limb; Z88.6 Allergy status to analgesic agent; Z88.1 Allergy status to other antibiotic agents; Z79.4 Long term (current) use of insulin; E11.22 Type 2 diabetes mellitus with diabetic chronic kidney disease; N18.9 Chronic kidney disease, unspecified; G62.9 Polyneuropathy, unspecified; E66.9 Obesity, unspecified; K21.9 Gastro-esophageal reflux disease without esophagitis; K44.9 Diaphragmatic hernia without obstruction or gangrene
CPT/HCPCS: 36415; 36569; 71046; 76937; 80053; 80202; 82962; 83036; 85025; 87040; 87070; 87181; 87205; J1815; J2405; S5561

== ENCOUNTER 2020-04-03 14:40 | Outpatient (CLI) | payer MEDICARE ==
[~2020-04-03 14:40] MED LIST changes: +VIBRAMYCIN100 MG ORAL
== END 2020-04-03 16:40 | disposition home or self-care (01) ==
LOC: PAN 14:40
DX: R10.9 Unspecified abdominal pain (principal)
CPT/HCPCS: G0463

== ENCOUNTER 2020-04-21 07:28 | Day surgery (SDC) | payer MEDICARE ==
[2020-04-21] VITALS (10 sets, daily range): BP systolic 136–167; BP diastolic 75–88
[~2020-04-21] VITALS: Ht 157.5 cm; Wt 107.0 kg
[~2020-04-21 07:28] MED LIST changes: +Atropine Inj 1mg/10ml Syr IVP PRN; +CELEBREX100 MG ORAL; +DiphenhydrAMINE 50mg/ml Inj IVP PRN; +LR 1000ml 1,000 ML IVLG SCH; +Midazolam 2mg/2ml Inj IVP PRN; +POTASSIUM CHLO20 ME1 ORAL; +TRULICITY1.5 MG/0.5 SQ; +VITAMIN D PO; +fentaNYL 100 mcg/2 mL IV PRN
--- NOTE | 2020-04-21 07:30 | Anethesia Preoperative Eval ---
Anesthesia Pre-op PMH/ROS General Date of Evaluation: Apr 21, 2020 Time of Evaluation: 07:28 Anesthesiologist: sue ASA Score: ASA 4 Mallampati Score Class I : Soft palate, uvula, fauces, pillars visible Class II: Soft palate, uvula, fauces visible Class III: Soft palate, base of uvula visible Class IV: Only hard plate visible Mallampati Classification: Class II Surgeon: quentin Diagnosis: gerd, abdominal pain Surgical Procedure: egd Anesthesia History: none Social History: current smoker Family History: no anesthesia problems Allergies: Coded Allergies: ASPIRIN (Verified Allergy, Intermediate, UPSET STOMACH , 04/17/20) Medications: see eMAR Patient NPO?: Yes Past Medical History Cardiovascular: Reports: HTN Pulmonary: Reports: asthma, COPD Gastrointestinal/Genitourinary: Reports: GERD Neurologic/Psychiatric: Reports: CVA Endocrine: Reports: DM HEENT: Reports: cataract (L), cataract (R), UPPER SKAGIT (L), UPPER SKAGIT (R) Hematology/Immune: Reports: anemia Musculoskeletal/Integumentary: Reports: OA Anesthesia Pre-op Phys. Exam Physician Exam Last Vital Signs Date Time Temp Pulse Resp B/P (MAP) Pulse Ox O2 Delivery O2 Flow Rate FiO2 04/21/20 08:01 97.4 91 20 139/83 97 Room Air Constitutional: NAD Neurologic: CN 2-12 intact Cardiovascular: RRR Respiratory: CTA Gastrointestinal: S/NT/ND Airway Exam Mallampati Score: Class II MO: limited Neck: flexible TMD: 2fb ROM: limited Anesthesia Pre-op A/P Labs Labs Test 04/21/20 08:11 Microbiology Date/Time Source Procedure Growth Status 04/18/20 08:10 Nasopharynx Coronavirus COVID-19 PCR (FAYE) - Final Complete Studies Pre-op Studies: EKG - sinus rhythym w/ pvcs Risk Assessment & Plan Assessment: asa4 Plan: mac Status Change Before Surgery: No Pre-Antibiotics Drug: Nika Dickens MD Apr 21, 2020 07:30
[2020-04-21] MEDS ORDERED: LR 1000ml 1,000 ML IVLG SCH (09:00)
--- NOTE | 2020-04-21 09:58 | Pre-Procedure Note/Attestation ---
Pre-Procedure Note/Attestation Complete Prior to Procedure Planned Procedure: not applicable Procedure Narrative: egd and colonoscopy Indications for Procedure Pre-Operative Diagnosis: screening colon, GERD Attestation I attest that I discussed the nature of the procedure; its benefits; risks and complications; and alternatives (and the risks and benefits of such alternatives), prior to the procedure, with the patient (or the patient's legal in store marketing representative). I attest that, if there was a reasonable possibility of needing a blood transfusion, the patient (or the patient's legal in store marketing representative) was given the [facility] standardized written summary, pursuant to the Aldo Brigido Blood Safety Act ([place] Health and Safety Code # 1645, as amended). I attest that I re-evaluated the patient just prior to the surgery and that there has been no change in the patient's H&P, except as documented below: Kirby Segura MD Apr 21, 2020 09:58
--- NOTE | 2020-04-21 09:58 | Short Stay Surgery H&P ---
History of Present Illness History of Present Illness Chief Complaint see office note HPI Kadie Cooney is a 74 year old female who was admitted on for Gerd, Abdominal Pain Patient History Allergies: Coded Allergies: ASPIRIN (Verified Allergy, Intermediate, UPSET STOMACH , 04/17/20) Medication History Scheduled Celecoxib* (Celebrex*), 100 MG ORAL DAILY, (Reported) Dulaglutide (Trulicity), 1.5 MG SQ DAILY, (Reported) Gabapentin* (Gabapentin*), 300 MG ORAL THREE TIMES A DAY, (Reported) Insulin Glargine,Hum.rec.anlog (Toujeo Solostar), 76 UNIT SQ HS, (Reported) Naproxen Sodium (Aleve), MG PO DAILY, (Reported) Potassium Chloride* (K-Dur*), 20 MEQ ORAL DAILY, (Reported) [Vitamin D], 1,000 MG PO DAILY, (Reported) Scheduled PRN Diphenhydramine Hcl* (Diphenhydramine Hcl*), 25 MG ORAL BID PRN for Itching, (Reported) Tramadol Hcl* (Ultram*), 50 MG ORAL Q6H PRN for For Pain, (Reported) Discontinued Medications Doxycycline Hyclate* (Vibramycin*), 100 MG ORAL EVERY 12 HOURS Discontinued Reason: Pt stopped taking med Mupirocin (Mupirocin), 1 APPLIC TOPIC THREE TIMES A DAY Discontinued Reason: Pt stopped taking med Physical Exam Vital Signs Last Vital Signs Date Time Temp Pulse Resp B/P (MAP) Pulse Ox O2 Delivery O2 Flow Rate FiO2 04/21/20 08:11 Room Air 04/21/20 08:01 97.4 91 20 139/83 97 Labs Laboratory Tests Test 04/21/20 08:11 POC Whole Blood Glucose Pending Plan Attestation Are the patient's medical conditions optimized for surgery? Kirby Segura MD Apr 21, 2020 09:58
--- NOTE | 2020-04-21 10:12 | Endoscopy Procedure Note ---
Endoscopy Procedure Note General Indication for Procedure: gib Procedures Performed: EGD Operative Findings/Diagnosis: distal esophagus stricture Specimen: yes Pt Tolerated Procedure Well: Yes Estimated Blood Loss: none Anesthesia Anesthesiologist: anselmo Anesthesia: MAC Inserted Devices Implant(s) used?: No GI Core Measures 50 yrs or older w/o bx or poly: Not Applicable 10yrs. F/U recommended: Not Applicable Kirby Segura MD Apr 21, 2020 10:11
--- NOTE | 2020-04-21 10:40 | Immediate Post-Op Evaluation ---
Immediate Post-Op Evalulation Immediate Post-Op Evalulation Procedure: egd w/bx Date of Evaluation: Apr 21, 2020 Time of Evaluation: 10:35 IV Fluids: 600ml lr Blood Products: none Estimated Blood Loss: negligible Blood Pressure Systolic: 161 Blood Pressure Diastolic: 88 Pulse Rate: 98 Respiratory Rate: 18 O2 Sat by Pulse Oximetry: 99 Temperature (Fahrenheit): 97.2 Pain Score (1-10): 0 Nausea: No Vomiting: No Complications none Patient Status: awake, reacts, patent Hydration Status: adequate Drug: Nika Dickens MD Apr 21, 2020 10:40
--- NOTE | 2020-04-21 10:40 | 48 Hour Post Anesthesia Eval ---
Post Anesthesia Evaluation Procedure: egd w/bx Date of Evaluation: Apr 21, 2020 Time of Evaluation: 10:37 Blood Pressure Systolic: 166 0: 77 Pulse Rate: 92 Respiratory Rate: 18 Temperature (Fahrenheit): 97.2 O2 Sat by Pulse Oximetry: 99 Airway: patent Nausea: No Vomiting: No Pain Intensity: 0 Hydration Status: adequate Cardiopulmonary Status: none Mental Status/LOC: patient returned to baseline Post-Anesthesia Complications: none Follow-up care needed: N/A Nika Ingram MD Apr 21, 2020 10:40
--- NOTE | 2020-04-21 11:00 | Procedure Note ---
DATE OF PROCEDURE: 04/21/2020 SURGEON: Kirby Segura MD. PROCEDURE: Upper endoscopy with biopsy. ANESTHESIA: Per Dr. Borja. INSTRUMENT: Olympus adult flexible upper endoscope. INDICATION: Upper GI bleeding. REASON FOR PROCEDURE: The procedure, risks, benefits, and possible consequences, including hemorrhage, aspiration, perforation and infection, and alternative treatments, were explained to the patient/legal guardian by Dr. Kirby Segura and the patient/legal guardian understood and accepted these risks. PROCEDURE IN DETAIL: After informed consent was obtained and the patient was adequately sedated, Olympus upper endoscope was advanced from mouth into the esophagus. At about 40 cm from the incisors, there was a GE junction. There was a stricture, which required pushing the scope through. Basically, we dilated the stricture with the scope. There was a little bit of bleeding, suggestive of adequate dilatation. In the stomach, there was diffuse gastritis. Random biopsy from antrum was obtained to rule out H. pylori infection. The rest of the upper endoscopic examination grossly looked within normal limits. The patient tolerated the procedure very well. SUMMARY OF FINDINGS: 1. Distal esophageal stricture at the GE junction required dilatation with the scope. 2. Gastritis, status post biopsy. RECOMMENDATIONS: Follow biopsy results and treat accordingly. Kirby Segura M.D. DR: SHAHLA JOB#: [id number] CC:
== END 2020-04-21 11:30 | disposition home or self-care (01) ==
LOC: GAS 07:28
DX: K92.2 Gastrointestinal hemorrhage, unspecified (principal); K29.50 Unspecified chronic gastritis without bleeding; K22.2 Esophageal obstruction; Z88.6 Allergy status to analgesic agent; Z79.899 Other long term (current) drug therapy; J44.9 Chronic obstructive pulmonary disease, unspecified; I10 Essential (primary) hypertension; K21.9 Gastro-esophageal reflux disease without esophagitis; E11.9 Type 2 diabetes mellitus without complications; M19.90 Unspecified osteoarthritis, unspecified site
CPT/HCPCS: 43239; 82962; 94003; U0004; 94150

== ENCOUNTER 2020-06-18 13:36 | Outpatient (CLI) | payer MEDICARE ==
[~2020-06-18 13:36] MED LIST changes: -Atropine Inj 1mg/10ml Syr IVP PRN; -DiphenhydrAMINE 50mg/ml Inj IVP PRN; -LR 1000ml 1,000 ML IVLG SCH; -Midazolam 2mg/2ml Inj IVP PRN; -fentaNYL 100 mcg/2 mL IV PRN
[2020-06-18 13:53] VITALS: BP 140/68
== END 2020-06-18 15:36 | disposition home or self-care (01) ==
LOC: PAN 13:36
DX: R10.9 Unspecified abdominal pain (principal)
CPT/HCPCS: 99212